=== PATIENT | female | born 1985 | race Caucasian/White ===

== ENCOUNTER 2021-07-23 11:44 | Outpatient (CLI) | payer OTHER ==
--- NOTE | 2021-07-23 19:01 | XRAY Report ---
PROCEDURE: Lumbar Spine 2 View INDICATIONS: DORSOPATHY DORSALGIA TECHNIQUE: 3 views of the lumbar spine were acquired. COMPARISON: None. FINDINGS: Bones: Convex right thoracolumbar scoliosis noted. There is fusion or nonsegmentation at the thoracol umbar junction with right lateral elizabeth and screw instrumentation and decompressive laminectomies. Disc space narrowing and anterior osteophyte noted at L1-2. Hypertrophic facet joints noted in the lower lumbar spine. Normal bone mineralization present. Surgical clips noted in the right upper quadrant. Soft tissues: Overlying bowel gas pattern is normal. No suspicious soft tissue calcifications. IMPRESSION: Multilevel decompressive laminectomies, interbody fusion or nonsegmentation , and right lateral instr umentation noted at the thoracolumbar junction. Thoracolumbar dextroscoliosis. Reviewed by: Dheeraj Haile MD on 07/23/2021 5:59 PM AKST Approved by: Dheeraj Haile MD on 07/23/2021 5:59 PM AKST Station ID: [id number]
== END 2021-07-23 11:45 | disposition home or self-care (01) ==
LOC: DI.N 11:44
PROVIDERS: ATTEND Family Medicine
DX: M47.816 Spondylosis without myelopathy or radiculopathy, lumbar region (principal); M51.36 Other intervertebral disc degeneration, lumbar region; Z98.1 Arthrodesis status

== ENCOUNTER 2021-08-05 15:32 | Outpatient (CLI) | payer MEDICAID ==
--- NOTE | 2021-08-06 08:43 | Ultrasound Report ---
PROCEDURE: Duplex Ext Veins Right INDICATIONS: ANTIPHOSPHOLIPID SYNDROME TECHNIQUE: Real-time imaging, as well as color and pulse Doppler interrogation, were performed of the lower extr emity deep veins from the inguinal ligament to the popliteal fossa. COMPARISON: None. FINDINGS: There are partially occlusive linear filling defects involving the common femoral vein, fem oral vein and popliteal vein, suggesting chronic DVT. The common femoral vein, femoral vein and popli teal vein are partially compressible. 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 IMPRESSION: Suspect chronic nonocclusive DVT in the right lower extremity. Reviewed by: Srinivasa Fragoso MD on 08/06/2021 8:42 AM PST Approved by: Srinivasa Fragoso MD on 08/06/2021 8:42 AM PST Station ID: [id number]
== END 2021-08-05 15:33 | disposition home or self-care (01) ==
LOC: DI 15:32
PROVIDERS: ATTEND Internal Medicine Hematology & Oncology
DX: D68.61 Antiphospholipid syndrome (principal)

== ENCOUNTER 2021-08-27 10:45 | Outpatient (CLI) | payer MEDICAID ==
--- NOTE | 2021-08-27 15:47 | XRAY Report ---
PROCEDURE: Cervical Spine 2 View INDICATIONS: C SPINE PAIN TECHNIQUE: 3 view(s) of the cervical spine were acquired. COMPARISON: None. FINDINGS: Bones: No fractures or dislocations to the C7-T1 level. The lateral masses of C1 appear intact on t he odontoid view. No suspicious bony lesions. There is straightening of normal cervical curvature. Mild disc space narrowing is present C4-5, C5-6 and C6-7. Soft tissues: No prevertebral soft tissue swelling. IMPRESSION: Straightening of cervical curvature with mild multilevel disc space narrowing. Reviewed by: Anayeli Rodriguez MD on 08/27/2021 3:45 PM PST Approved by: Anayeli Rodriguez MD on 08/27/2021 3:45 PM PST Station ID: [id number]
--- NOTE | 2021-08-27 18:17 | XRAY Report ---
PROCEDURE: Shoulder 3 View RT INDICATIONS: SHOULDER PAIN TECHNIQUE: 3 views of the shoulder were acquired. COMPARISON: None. FINDINGS: Bones: No fractures or dislocations. No suspicious bony lesions. Visualized ribs appear intact. Soft tissues: No suspicious soft tissue calcifications. IMPRESSION: No osseous lesion. If there are persistent symptoms or continued clinical concern for pathology, the n advanced imaging (CT, MR, bone scan) should be considered for further evaluation. Reviewed by: Allegra Henao MD, PhD on 08/27/2021 6:15 PM PST Approved by: Allegra Henao MD, PhD on 08/27/2021 6:15 PM PST Station ID: [id number]
== END 2021-08-27 10:46 | disposition home or self-care (01) ==
LOC: DI 10:45
PROVIDERS: ATTEND Family Medicine
DX: M50.821 Other cervical disc disorders at C4-C5 level (principal); M25.511 Pain in right shoulder

== ENCOUNTER 2022-01-20 07:23 | Outpatient (CLI) | payer MEDICAID ==
--- NOTE | 2022-01-20 09:17 | MRI Report ---
PROCEDURE: Cervical Spine W/O INDICATIONS: CERVICAL RADICULOPATHY TECHNIQUE: Noncontrast sagittal T1 spin echo and T2 fast spin echo, sagittal STIR, foraminal oblique sagittal T2 fast spin echo, and axial gradient echo or T2 fast spin echo through the cervical spine. COMPARISON: None. FINDINGS: Image quality: Excellent. Alignment and Curvature: There is loss of normal cervical lordosis. 2 mm of anterolisthesis of C5 on C6. Bone Marrow: Marrow demonstrates normal overall signal. Mild reactive signal throughout the endplat es of the cervical spine. Spinal Cord: Visualized spinal cord has normal size and signal. No cerebellar tonsillar herniation. Paraspinous Soft Tissues: No paravertebral masses. Prevertebral soft tissues are normal in thicknes s. C2-C3: Congenital canal stenosis. Mild canal stenosis. No foraminal stenosis. C3-C4: Congenital canal stenosis. Mild disc desiccation and diffuse disc bulge. Mild to moderate ca nal stenosis. No foraminal stenosis. C4-C5: Congenital canal stenosis. Mild disc desiccation and diffuse disc bulge. Moderate canal steno sis. No foraminal stenosis. C5-C6: Congenital canal stenosis. Mild disc desiccation and diffuse disc bulge. Mild canal stenosis. No foraminal stenosis. C6-C7: Congenital canal stenosis. Mild disc desiccation and diffuse disc bulge. Mild canal stenosis. No foraminal stenosis. C7-T1: Normal in appearance. IMPRESSION: 1. 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 2. Multilevel canal stenoses, worst at C4-C5 where there is moderate canal stenosis. 3. Mild multilevel foraminal stenoses. Reviewed by: Risa Medel MD on 01/20/2022 9:15 AM PDT Approved by: Risa Medel MD on 01/20/2022 9:15 AM PDT Station ID: [id number]
== END 2022-01-20 07:24 | disposition home or self-care (01) ==
LOC: DI 07:23
PROVIDERS: ATTEND Physician Assistant
DX: M50.31 Other cervical disc degeneration, high cervical region (principal); M48.02 Spinal stenosis, cervical region

== ENCOUNTER 2022-04-01 14:16 | Outpatient (CLI) | payer MEDICAID ==
--- NOTE | 2022-04-02 10:02 | MRI Report ---
PROCEDURE: Lumbar Spine W/O INDICATIONS: LUMBAR RADICULOPATHY TECHNIQUE: Noncontrast sagittal T1 spin echo and T2 fast echo, sagittal STIR, axial T1 and T2 fast spin echo thr ough the lumbar spine. In cases with scoliosis, additional coronal T2 fast spin echo may be performe d. COMPARISON: None. FINDINGS: Image quality: Excellent. Alignment and Curvature: There is normal bony alignment. Bone Marrow: Marrow is of normal overall signal. No acute vertebral body compression fractures. Spinal Cord: Conus medullaris terminates at the upper L2 level. Visualized cord demonstrates normal signal and size. Regional Soft Tissues: No paravertebral masses. T12-L1: Normal in appearance. L1-L2: Normal in appearance. L2-L3: Normal in appearance. L3-L4: Normal in appearance. L4-L5: Normal in appearance. L5-S1: Normal in appearance. IMPRESSION: Partially visualized thoracolumbar fusion hardware. No spinal canal or neural foraminal stenosis in the lumbar spine. No findings of focal nerve root impingement. Reviewed by: Dale Yañez MD on 04/02/2022 10:01 AM PDT Approved by: Dale Yañez MD on 04/02/2022 10:01 AM PDT Station ID: [id number]
== END 2022-04-01 14:17 | disposition home or self-care (01) ==
LOC: DI 14:16
PROVIDERS: ATTEND Physician Assistant
DX: M54.16 Radiculopathy, lumbar region (principal); Z98.1 Arthrodesis status

== ENCOUNTER 2022-08-23 16:16 | Outpatient (CLI) | payer MEDICAID | END 2022-08-23 16:17 | disposition EMS.NT | LOC: EMS 16:16 | DX: R00.0 Tachycardia, unspecified (principal) ==

== ENCOUNTER 2023-09-09 09:20 | Emergency (ER) | payer MEDICAID ==
[2023-09-09 09:52] LABS: BASOPHILS # (AUTO) 0.1 10^3/uL (0.0-0.1); BASOPHILS % (AUTO) 0.5 %; EOSINOPHILS # (AUTO) 0.2 10^3/uL (0.0-0.7); EOSINOPHILS % (AUTO) 1.3 %; HCT - HEMATOCRIT 31.9 % (37.0-47.0); HGB - HEMOGLOBIN 10.3 g/dL (12.0-16.0); LYMPHOCYTES # (AUTO) 2.3 10^3/uL (1.5-3.5); LYMPHOCYTES % (AUTO) 17.8 %; MEAN CORPUSCULAR HEMOGLOBIN 31.8 pg (27.0-31.0); MEAN CORPUSCULAR HGB CONC 32.3 g/dL (32.0-36.0); MEAN CORPUSCULAR VOLUME 98.5 fL (81.0-99.0); MEAN PLATELET VOLUME 8.5 fL (7.9-10.8); MONOCYTES # (AUTO) 0.8 10^3/uL (0.0-1.0); MONOCYTES % (AUTO) 6.4 %; NEUTROPHILS # (AUTO) 9.3 10^3/uL (1.5-6.6); NEUTROPHILS % (AUTO) 71.8 %; NRBC ABSOLUTE COUNT (AUTO) 0.04 x10^3/uL; NUCLEATED RED BLOOD CELLS AUTO 0.3 /100WBC; PLT - PLATELET COUNT 496 10^3/uL (130-450); RED BLOOD COUNT 3.24 10^6/uL (4.20-5.40)
[2023-09-09 10:07] LABS: ALBUMIN 4.3 g/dL (3.2-5.5); ALBUMIN/GLOBULIN RATIO 1.7 (1.0-2.2); BILIRUBIN,TOTAL 0.2 mg/dL (0.2-1.0); CALCIUM 9.2 mg/dL (8.5-10.3); CREATININE 0.7 mg/dL (0.6-1.3); POTASSIUM 3.8 mmol/L (3.5-4.5); TOTAL PROTEIN 6.8 g/dL (6.4-8.9)
[2023-09-09 10:21] LABS: INR 4.2 (0.8-1.2); PT - PROTHROMBIN TIME 42.7 secs (9.9-12.6)
[2023-09-09 10:29] LABS: HCG,QUALITATIVE BLOOD NEGATIVE
[2023-09-09 12:23] VITALS: BP 119/72; O2SAT 98
--- NOTE | 2023-09-09 12:25 | Ultrasound Report ---
PROCEDURE: Pelvic w/Doppler Limited INDICATIONS: vag bleeding, anticoag, x 6 wks TECHNIQUE: Real-time transabdominal scanning was performed of the pelvic organs, with image documentation. Dopp ler interrogation was performed of the ovaries bilaterally. COMPARISON: None. FINDINGS: Uterus: Uterus measures 7.6 x 3.4 x 6.2 cm. Homogenous echotexture. Endometrium is prominent at 14 mm . Masslike thickening with vascularity seen near the fundus measuring 1.6 x 1.2 cm. Ovaries: Borderline size of ovaries bilaterally measuring 11 to 12 cc. No definite mass Color and spectral Doppler: flows are documented Other: No pathologic free fluid. IMPRESSION: Endometrial mass versus focal thickening/hyperplasia measuring 1.6 x 1.2 cm. Consider further evaluat ion with direct visualization versus MRI. Reviewed by: Regulo Sharma MD on 09/09/2023 12:24 PM PDT Approved by: Regulo Sharma MD on 09/09/2023 12:24 PM PDT Station ID: [id number]
--- NOTE | 2023-09-09 12:48 | ED Physician Documentation ---
PD HPI FEMALE - Stated complaint Stated Complaint: - Chief complaint Chief Complaint: Abd Pain - History obtained from History obtained from: Patient - Additional information Additional information: The pt comes to the ED with CC of vaginal bleeding for the past 6 weeks. She is on Coumadin. She states it started with a period, but never stopped. She has a h/o irregular periods. No known fibroids. Not known to be . She c/o abd cramping. No other complaints at this time. PD PAST MEDICAL HISTORY - Past Medical History Past Medical History: Yes GI: Hepatitis Other Past Medical History: PCOS, DVTs, [place] - Past Surgical History Past Surgical History: Yes General: Other /[employer]: Other - Present Medications Home Medications: Ambulatory Orders Medication Instructions Recorded Confirmed Metformin HCl [Metformin ER 1,000 mg PO BID 07/22/21 09/09/23 Osmotic] Metoprolol Tartrate [Lopressor] 50 mg PO BID 07/22/21 09/09/23 Spironolactone [Aldactone] 100 mg PO BID 07/22/21 09/09/23 Warfarin [Coumadin] 5 mg PO UD 07/22/21 09/09/23 - Allergies Allergies/Adverse Reactions: Allergies Allergy/AdvReac Type Severity Reaction Status Date / Time No Known Drug Allergies Allergy Verified 09/09/23 09:32 - Social History Does the pt smoke?: No Smoking Status: Never smoker PD ED PE NORMAL - Vitals Vital signs reviewed: Yes - General General: Alert and oriented X 3, No acute distress, Well developed/nourished - HEENT HEENT: Atraumatic, PERRL, EOMI, Moist mucous membranes - Neck Neck: Supple, no meningeal sign - Cardiac Cardiac: RRR, No murmur, Strong equal pulses - Respiratory Respiratory: No respiratory distress, Clear bilaterally - Abdomen Abdomen: Soft, Non tender, Non distended - Female Female : Other (moderate vaginal bleeding. No clots. No CMT or adnexal tend.) - Derm Derm: Normal color, Warm and dry, No rash - Extremities Extremities: No deformity - Neuro Neuro: Alert and oriented X 3 - Psych Psych: Normal mood, Normal affect Results - Vitals Vitals: Oxygen O2 Source Room air - Labs Labs: Laboratory Tests 09/09/23 09/09/23 09/09/23 09:47 09:47 09:47 WBC 13.0 H RBC 3.24 L Hgb 10.3 L Hct 31.9 L MCV 98.5 MCH 31.8 H MCHC 32.3 RDW 14.0 Plt Count 496 H MPV 8.5 Neut # (Auto) 9.3 H Lymph # (Auto) 2.3 [place] # (Auto) 0.8 Eos # (Auto) 0.2 Baso # (Auto) 0.1 Absolute Nucleated RBC 0.04 Nucleated RBC % 0.3 PT 42.7 H INR 4.2 H Sodium 136 Potassium 3.8 Chloride 102 Carbon Dioxide 28 Anion Gap 6.0 BUN 15 Creatinine 0.7 Estimated GFR (MDRD) 94 Glucose 108 H Calcium 9.2 Total Bilirubin 0.2 AST 13 ALT 15 Alkaline Phosphatase 80 Total Protein 6.8 Albumin 4.3 Globulin 2.5 Albumin/Globulin Ratio 1.7 Lipase 24 Serum HCG, Qual 09/09/23 09:47 WBC RBC Hgb Hct MCV MCH MCHC RDW Plt Count MPV Neut # (Auto) Lymph # (Auto) [place] # (Auto) Eos # (Auto) Baso # (Auto) Absolute Nucleated RBC Nucleated RBC % PT INR Sodium Potassium Chloride Carbon Dioxide Anion Gap BUN Creatinine Estimated GFR (MDRD) Glucose Calcium Total Bilirubin AST ALT Alkaline Phosphatase Total Protein Albumin Globulin Albumin/Globulin Ratio Lipase Serum HCG, Qual NEGATIVE - Rads (name of study) US pelvis Relevant Findings:: Final report received, See rad report (small uterine mass.) PD Medical Decision Making - ED course Complexity details: reviewed results, re-evaluated patient, considered dif ferential, d/w patient, d/w cancer program consultant ED course: The pt was stable and well-appearing in the ED. She was worked up with labs, which showed H/H 10.2/31.9. Her last comparison was 2 years ago, and normal. INR was supratherapeutic at 4.2. Her US showed a small uterine mass. I discussed the case with Dr. William, who was correctional supply supervisor for [facility]. She requested that the pt be sent to her office upon discharge, and she would examine the pt there and decide what to do. The pt was agreeable to the plan, and was walked across the [facility] to [facility] by one of our staff. Departure - Departure Disposition: 01 Home, Self Care Clinical Impression: Dysfunctional uterine bleeding, Uterine mass Coumadin toxicity Qualifiers: Encounter type: initial encounter Injury intent: accidental or unintentional Qualified Code(s): T45.511A - Poisoning by anticoagulants, accidental (unintentional), initial encounter Condition: Stable Instructions: ED Bleed Irregular Vaginal Comments: Your ultrasound today shows a possible mass in your uterus. This could be the cause of your bleeding and given that you are on the Coumadin, this is probably make it worse. I discussed your case with Dr. William, our on-call [employer] specialist, and she would like you to come over to her office immediately after discharge so that she can examine you and talk about a biopsy. As for your INR being elevated at 4.2, this is a fairly mild elevation and is generally easily treated with holding a single dose of your Coumadin. As such, please do not take your next scheduled dose of the warfarin/Coumadin. You should try to schedule another INR as soon as possible afterward to make sure that this has fix the problem. If you are chronically running a little too high, then you will need to discuss with your doctor whether your dose needs to be decreased. Please do get back on iron pills. You may obtain these [id number] in the vitamin section of any grocery store. Forms: PCP List Discharge Date/Time: 09/09/23 13:03
== END 2023-09-09 13:03 | disposition home or self-care (01) ==
LOC: ED 09:20
DX: N93.8 Other specified abnormal uterine and vaginal bleeding (principal); R19.09 Other intra-abdominal and pelvic swelling, mass and lump; T45.511A Poisoning by anticoagulants, accidental (unintentional), initial encounter; Z79.01 Long term (current) use of anticoagulants
CPT/HCPCS: 36415; 80053; 83690; 84703; 85025; 85610; 93976; 99284

== ENCOUNTER 2023-10-27 13:34 | Outpatient (CLI) | payer MEDICAID ==
[2023-10-27 14:00] LABS: INR 3.6 (0.8-1.2); PT - PROTHROMBIN TIME 37.3 secs (9.9-12.6)
[2023-10-27 14:11] LABS: HCT - HEMATOCRIT 41.3 % (37.0-47.0); HGB - HEMOGLOBIN 12.5 g/dL (12.0-16.0); MEAN CORPUSCULAR HEMOGLOBIN 29.4 pg (27.0-31.0); MEAN CORPUSCULAR HGB CONC 30.3 g/dL (32.0-36.0); MEAN CORPUSCULAR VOLUME 97.2 fL (81.0-99.0); MEAN PLATELET VOLUME 8.7 fL (7.9-10.8); RED BLOOD COUNT 4.25 10^6/uL (4.20-5.40); RED CELL DISTRIBUTION WIDTH 13.1 % (12.0-15.0); WHITE BLOOD COUNT 10.7 x10^3/uL (4.8-10.8)
[2023-10-27 14:21] LABS: THYROID STIMULATING HORMONE 3.63 uIU/mL (0.34-5.60)
[2023-10-27 20:20] LABS: ESTIMATED AVERAGE GLUCOSE 88 mg/dL (70-100); HEMOGLOBIN A1c% 4.7 % (4.27-6.07)
== END 2023-10-27 13:35 | disposition home or self-care (01) ==
LOC: LAB 13:34
PROVIDERS: ATTEND Obstetrics & Gynecology
DX: N93.9 Abnormal uterine and vaginal bleeding, unspecified (principal); Z79.01 Long term (current) use of anticoagulants
CPT/HCPCS: 36415; 83036; 84443; 85027; 85610